=== PATIENT | male | born 1960 | race Caucasian/White ===

== ENCOUNTER 2022-03-11 00:31 | Day surgery (SDC) | payer BC, SELFPAY ==
[2022-02-26 08:53] VITALS: BMI 38.0
--- NOTE | 2022-03-08 14:29 | PM.HPGS ---
History of Present Illness History of Present Illness Consent: Risks, benefits, and alternatives have been discussed and questions answered. Patient agrees to proceed with procedure. Chief complaint: hx of colon polyps Narrative: Anil Naik is a 61 year old male Referred for colon cancer screening. He had a polyp removed about 5 years ago Review of Systems Review of Systems: All systems reviewed & are unremarkable except as noted in HPI and below PMFSH Social History Social History Smoking status: Current some day smoker Tobacco type: cigars Alcohol intake: current Drinks per week: 2 Substance use: never Substance use type: does not use Living arrangements: with family Spiritual care concerns: No Meds Home Medications and Allergies Home Medications Medication Instructions Recorded Confirmed Type dapagliflozin 5 mg tablet (Farxiga) 5 mg PO DAILY 02/26/22 03/11/22 History dulaglutide 0.75 mg/0.5 mL 0.5 mg subcut WEEKLY 02/26/22 03/11/22 History subcutaneous pen injector (Trulicity) ergocalciferol (vitamin D2) 1,250 1,250 mcg PO DAILY 02/26/22 03/11/22 History mcg (50,000 unit) capsule escitalopram oxalate 10 mg tablet 10 mg PO DAILY 02/26/22 03/11/22 History lisinopril 10 1 tablet PO DAILY 02/26/22 03/11/22 History mg-hydrochlorothiazide 12.5 mg tablet omeprazole 40 mg capsule,delayed 40 mg PO DAILY 02/26/22 03/11/22 History release rosuvastatin 20 mg tablet 20 mg PO DAILY 02/26/22 03/11/22 History sitagliptin 50 mg-metformin 1,000 1 tablet PO DAILY 02/26/22 03/11/22 History mg tablet (Janumet) Allergies Allergy/AdvReac Type Severity Reaction Status Date / Time codeine AdvReac Mild Nausea and Verified 03/11/22 09:14 Vomiting Exam Const: General: alert Orientation/consciousness: patient oriented x3 Resp: Auscultation: clear to auscultation bilaterally Cardio: Rhythm: regular rhythm GI: GI Palp: Yes Soft to palpation and No Tenderness to palpation present (GI) Neuro: General: patient oriented x3 Assessment and Plan Assessment and plan (1) Colon cancer screening: Code(s): Z12.11 - Encounter for screening for malignant neoplasm of colon Status: Acute Assessment and Plan: Colonoscopy with possible biopsy or polypectomy or cautery or injection of substances.
[2022-03-11 09:15] VITALS: BP 129/82; PULSE 76; RESP 18; TEMP 36.3; O2SAT 97; BMI 36.6
[2022-03-11] MEDS: LACTATED RINGERS 1,000 ML 150 ML IV CONT (09:18)
[2022-03-11 09:29] LABS: Glucose Point of Care 234 mg/dl (65-105)
--- NOTE | 2022-03-11 09:45 | WPDANESEPPF ---
Anes - Initial Pre Proc Eval Procedure: Operation Date: 03/11/22 10:00 Proposed Procedures p Screening Colonoscopy - Triston Ruiz MD Date/Time: 03/11/22 09:45 Surgeon: Triston Ruiz MD Pre Op Diagnosis: hx of colon polyps Patient Data Age: 61 Gender: M Height: 1.83 m Weight: 122.4 kg Last Vital Signs Temp 97.3 F L 03/11/22 09:15 Pulse 76 03/11/22 09:15 Resp 18 03/11/22 09:15 BP 129/82 03/11/22 09:15 Pulse Ox 97 03/11/22 09:15 O2 Del Method Room Air 03/11/22 09:15 Allergies Allergy/AdvReac Type Severity Reaction Status Date / Time codeine AdvReac Mild Nausea and Verified 03/11/22 09:14 Vomiting Home Medications Medication Instructions Recorded Confirmed Type dapagliflozin 5 mg tablet (Farxiga) 5 mg PO DAILY 02/26/22 03/11/22 History dulaglutide 0.75 mg/0.5 mL 0.5 mg subcut WEEKLY 02/26/22 03/11/22 History subcutaneous pen injector (Trulicity) ergocalciferol (vitamin D2) 1,250 1,250 mcg PO DAILY 02/26/22 03/11/22 History mcg (50,000 unit) capsule escitalopram oxalate 10 mg tablet 10 mg PO DAILY 02/26/22 03/11/22 History lisinopril 10 1 tablet PO DAILY 02/26/22 03/11/22 History mg-hydrochlorothiazide 12.5 mg tablet omeprazole 40 mg capsule,delayed 40 mg PO DAILY 02/26/22 03/11/22 History release rosuvastatin 20 mg tablet 20 mg PO DAILY 02/26/22 03/11/22 History sitagliptin 50 mg-metformin 1,000 1 tablet PO DAILY 02/26/22 03/11/22 History mg tablet (Janumet) Laboratory Tests 03/11/22 09:26 POC Capillary Glucose 234 mg/dl H mg/dl (65-105) Patient hx anesthesia problems: none Family hx anesthesia problems: none Results Review: All pre-operative results and documents have been reviewed as part of the pre-operative evaluation. [facility] Social History Social History Smoking status: Current some day smoker Tobacco type: cigars Alcohol intake: current Drinks per week: 2 Substance use: never Substance use type: does not use Living arrangements: with family Spiritual care concerns: No Anes - Eval Final PreProcedure Day of Procedure 03/11/22 09:45 Patient weight: obese Heart: regular rate and rhythm Lungs: clear to auscultation Airway: Mallampati scale class II Neurological: alert and oriented Last oral intake: >/= 8 hours ASA classification: III Emergent: no Anesthetic plan: proceed Anesthesia type and monitoring: general GIVS and standard monitoring Results Review: All pre-operative results and documents have been reviewed as part of the pre-operative evaluation. Informed Consent: The patient's anesthetic plan and its attendant risks and benefits were discussed with the patient/family/POA. Questions were solicited and answers provided to the satisfaction of the patient/family/POA.
[2022-03-11 10:13] VITALS: BP 106/65; PULSE 70; RESP 13; O2SAT 96
[2022-03-11 10:23] VITALS: BP 97/61; PULSE 63; RESP 21; O2SAT 100
[2022-03-11 10:33] VITALS: BP 103/64; PULSE 71; RESP 17; O2SAT 100
== END 2022-03-11 10:36 | disposition home or self-care (01) ==
PROVIDERS: PCP Nurse Practitioner Adult Health; Visit Provider Internal Medicine Gastroenterology
PROC: 0DJD8ZZ Inspection of Lower Intestinal Tract, Via Natural or Artificial Opening Endoscopic (ICD-10-PCS; CPT 45378; principal; 2022-03-11 10:00)
DX: Z12.11 Encounter for screening for malignant neoplasm of colon (principal); Z86.010 Personal history of colon polyps; F17.210 Nicotine dependence, cigarettes, uncomplicated; E66.9 Obesity, unspecified; Z68.36 Body mass index [BMI] 36.0-36.9, adult
CPT/HCPCS: 45378; 82948; J2704; J7120